=== PATIENT | male | born 1995 | race Caucasian/White ===

== ENCOUNTER 2021-05-19 19:53 | Emergency (ER) | payer OTHER ==
[~2021-05-19] VITALS: Ht 165.1 cm; Wt 90.7 kg
[2021-05-19 20:07] VITALS: BP 138/83
--- NOTE | 2021-05-19 20:07 | NUR ---
TO BED AMBULATORY
--- NOTE | 2021-05-19 20:16 | NUR ---
Dr. Mathews examining patient.
[2021-05-19] MEDS ORDERED: LORazepam 1 MG TAB PO ONE (20:25)
[2021-05-19] MEDS ORDERED: ONDANSETRON 4 MG ODT PO ONE (20:25)
[2021-05-19 21:10] LABS: CARBON DIOXIDE 27.3 mmol/L (21-32); CREATININE 0.8 mg/dL (0.6-1.3); POTASSIUM 3.3 mmol/L (3.5-5.1)
[2021-05-19] MEDS ORDERED: NACL 0.9% 1,000 ML IV ONE (22:05)
[2021-05-19] MEDS ORDERED: KETOROLAC 30 MG/ML VIAL IVP ONE (22:05)
[2021-05-19] MEDS ORDERED: LORazepam 2 MG/ML VIAL IVP ONE (22:05)
--- NOTE | 2021-05-19 23:37 | NUR ---
ALONSO shaffer at bedside for re-examination
[2021-05-19 23:40] VITALS: BP 136/82
--- NOTE | 2021-05-19 23:40 | NUR ---
Patient discharged with v/s stable. Written and verbal after care instructions given and explained. Patient verbalized understanding. Ambulatory with steady gait. Id band removed, All questions addressed prior to discharge. Advised to follow up with PMD.
== END 2021-05-19 23:40 | disposition home or self-care (01) ==
LOC: MED 19:53
DX: R00.2 Palpitations (principal); F15.10 Other stimulant abuse, uncomplicated; F10.10 Alcohol abuse, uncomplicated; F41.9 Anxiety disorder, unspecified
CPT/HCPCS: 36415; 71045; 80048; 83735; 84484; 93005; 96361; 96374; 96375; 99285; J1885; J2060; Q0092; Q0162; J7030

== ENCOUNTER 2023-02-14 12:51 | Emergency (ER) | payer OTHER ==
[~2023-02-14] VITALS: Ht 162.6 cm; Wt 90.7 kg
[2023-02-14 12:56] VITALS: BP 136/72; PULSE 73; RESP 14; TEMP 98; O2SAT 99
[2023-02-14] MEDS ORDERED: POLY15SO74 RIGHT EYE (13:08)
[2023-02-14] MEDS ORDERED: PRED20TA5 PO (13:08)
[2023-02-14] MEDS ORDERED: VALA1TAB40 PO (13:08)
--- NOTE | 2023-02-14 14:09 | NUR ---
treated in [facility]. MD spoke with pt and then gave order for dc. ACI given and reviewed with pt, verbalized understanding. Reviewed px. Pt a/o x 4, vss, no ss of acute distress, breathing equal and unlabored, speech clear.
--- NOTE | 2023-02-14 14:19 | NUR ---
Patient discharged with v/s stable. Written and verbal after care instructions given and explained. Patient verbalized understanding. Ambulatory with steady gait. All questions addressed prior to discharge. Advised to follow up with PMD.
== END 2023-02-14 14:09 | disposition home or self-care (01) ==
LOC: MED 12:51
DX: G51.0 Bell's palsy (principal); Z79.899 Other long term (current) drug therapy
CPT/HCPCS: 70450; 99284